=== PATIENT | female | born 1950 | race Two or more races ===

== ENCOUNTER 2022-07-04 20:19 | Inpatient (IN) | payer MEDICAID ==
[~2022-07-04] VITALS: Ht 160 cm; Wt 70.5 kg
[2022-07-04 21:30] LABS: Basophils # (auto) 0.1 10 ^3/uL (0-0.2); Basophils % (auto) 0.9 % (0.0-2.0); Eosinophils # (auto) 0.3 10 ^3/uL (0-0.8); Eosinophils % (auto) 5.8 % (0.0-7.0); Hematocrit 40.2 % (36.0-46.0); Hemoglobin 13.3 g/dL (12.2-16.2); Lymphocytes % (auto) 34.9 % (10.0-50.0); Mean Corpuscular Hemoglobin 29.3 pg (28.0-32.0); Mean Corpuscular Volume 88.7 fL (80.0-100.0); Monocytes # (auto) 0.4 10 ^3/uL (0-1.3); Monocytes % (auto) 7.2 % (0.0-12.0); Neutrophils # (auto) 2.9 10 ^3/uL (1.6-8.6); Neutrophils % (auto) 51.2 % (37.0-80.0); Nucleated Red Blood Cells % 0.2 %; Red Blood Cells 4.53 10^6/uL (4.0-5.20); Red Cell Distribution Width 13.7 % (11.8-14.3); White Blood Cell 5.8 10^3/uL (4.4-10.8)
[2022-07-04 21:35] LABS: INR 0.98 (0.9-1.15); Partial Thromboplastin Time 32.2 sec (24.6-33.4)
[2022-07-04 23:01] LABS: Albumin 3.9 g/dL (3.4-5.0); BUN/Creatinine Ratio 27.4; Calcium 9.5 mg/dL (8.5-10.1); Magnesium 2.1 mg/dL (1.6-2.6); Potassium 3.9 mmol/L (3.5-5.1)
[2022-07-04 23:13] LABS: Bilirubin, Total 0.4 mg/dL (0.2-1.0); Total Protein 7.1 g/dL (6.4-8.2)
[2022-07-05] MEDS ORDERED: amLODIPine BESYLATE 5 MG TAB PO ONE (05:00)
[2022-07-05] MEDS ORDERED: OXYCODONE W/ ACETAMINOPHEN 5/325MG TABLET PO ONE (05:00)
[2022-07-05] MEDS ORDERED: LABE100T4 PO (06:14)
[2022-07-05] MEDS ORDERED: FLUO-126 PO (06:14)
[2022-07-05] MEDS ORDERED: HYDR-3682 PO (06:14)
[2022-07-05] MEDS ORDERED: CLON0.1T PO (06:14)
[2022-07-05] MEDS ORDERED: LOSA-69 PO (06:14)
[2022-07-05] MEDS ORDERED: HYDR25TA4 PO (06:14)
[2022-07-05] MEDS ORDERED: HYDR10TA26 PO (06:14)
[2022-07-05] MEDS ORDERED: NITROGLYCERIN 0.4 MG SL TAB SL PRN (06:15)
[2022-07-05] MEDS ORDERED: SODIUM CHLORIDE 0.9% 1,000 ML IV SCH (06:15)
[2022-07-05] MEDS ORDERED: ZOLPIDEM TARTRATE 5 MG TAB PO PRN (06:15)
[2022-07-05] MEDS ORDERED: MORPHINE SULFATE INJ 2 MG/ml SYRG IV PRN (06:15)
[2022-07-05] MEDS ORDERED: MAALOX PLUS or MAALOX 30 ML PO ONE (06:15)
[2022-07-05] MEDS ORDERED: CLOPIDOGREL BISULFATE 75 MG TAB PO SCH (10:00)
[2022-07-05] MEDS: METOPROLOL TARTRATE 25 MG TAB PO SCH ×2 (10:55→13:21)
[2022-07-05] MEDS: LISINOPRIL 10 MG TAB PO SCH ×2 (10:55→13:22)
[2022-07-05] MEDS: DOCUSATE SOD 100 MG CAP PO SCH (10:57)
[2022-07-05] MEDS: ASPirin 81 mg TAB PO SCH (10:57)
[2022-07-05 17:00] VITALS: BP 210/73
[2022-07-05] MEDS: hydrALAZINE HCL 20 MG/ML VL IV PRN ×2 (17:15→23:08)
[2022-07-05] MEDS ORDERED: SIMV80TA73 PO (17:25)
[2022-07-05] MEDS: ACETAMINOPHEN 325 MG TAB PO PRN (17:29)
[2022-07-05 17:50] VITALS: BP 172/49
[2022-07-05 19:20] VITALS: BP 120/63
[2022-07-05] MEDS ORDERED: FLUoxetine HCL 10 MG CAP PO ONE (21:15)
[2022-07-05] MEDS ORDERED: METOPROLOL TARTRATE 25 MG TAB PO ONE (21:15)
[2022-07-05] MEDS ORDERED: ATORVASTATIN 20 MG TAB PO SCH (22:00)
[2022-07-06 00:15] VITALS: BP 115/43
[2022-07-06 05:00] VITALS: BP 139/55
[2022-07-06] MEDS: ACETAMINOPHEN 325 MG TAB PO PRN (06:05)
[2022-07-06 08:55] VITALS: BP 135/46
[2022-07-06] MEDS: ASPirin 81 mg TAB PO SCH (09:12)
[2022-07-06] MEDS: METOPROLOL TARTRATE 25 MG TAB PO SCH (09:13)
[2022-07-06] MEDS: DOCUSATE SOD 100 MG CAP PO SCH (09:13)
[2022-07-06] MEDS ORDERED: FLUoxetine HCL 10 MG CAP PO SCH (10:00)
[2022-07-06] MEDS ORDERED: NITR0.4S29 SL (11:33)
[2022-07-06] MEDS ORDERED: LORA-655 PO (11:39)
[2022-07-06] MEDS: hydrALAZINE HCL 20 MG/ML VL IV PRN (11:48)
[2022-07-06] MEDS ORDERED: LORazepam 2MG/ML-1ML VIAL IV ONE (12:00)
[2022-07-06 12:22] VITALS: BP 186/68
[2022-07-06 13:15] VITALS: BP 176/66
== END 2022-07-06 17:21 | disposition home or self-care (01) | DRG 199 ==
LOC: EDBD 20:19 → ER 20:19 → TELE 07-05 06:17 → TELE-CENTR 07-05 16:37
PROVIDERS: ADMIT Hospitalist; ATTEND Internal Medicine
DX: I16.9 Hypertensive crisis, unspecified (principal); I24.9 Acute ischemic heart disease, unspecified; E66.9 Obesity, unspecified; E78.5 Hyperlipidemia, unspecified; F41.9 Anxiety disorder, unspecified; I10 Essential (primary) hypertension; Z20.822 Contact with and (suspected) exposure to COVID-19; Z88.8 Allergy status to other drugs, medicaments and biological substances; Z68.27 Body mass index [BMI] 27.0-27.9, adult
CPT/HCPCS: 36415; 80053; 83735; 83880; 84484; 85025; 85610; 85730; 87426; 93005; 96360; G0378

== ENCOUNTER 2022-07-10 18:29 | Inpatient (IN) | payer MEDICAID ==
[~2022-07-10] VITALS: Ht 160 cm; Wt 80.3 kg
[~2022-07-10 18:29] MED LIST: CLON0.1T PO; FLUO-126 PO; HYDR-3682 PO; HYDR10TA26 PO; HYDR25TA4 PO; LABE100T4 PO; LORA-655 PO; LOSA-69 PO; NITR0.4S29 SL; SIMV80TA73 PO
[2022-07-10] MEDS ORDERED: cloNIDine HCL 0.1 MG TAB PO ONE (19:00)
[2022-07-10 19:34] LABS: Basophils # (auto) 0 10 ^3/uL (0-0.2); Basophils % (auto) 0.9 % (0.0-2.0); Eosinophils # (auto) 0.3 10 ^3/uL (0-0.8); Eosinophils % (auto) 5.5 % (0.0-7.0); Hematocrit 38.6 % (36.0-46.0); Hemoglobin 12.9 g/dL (12.2-16.2); Lymphocytes # (auto) 1.8 10 ^3/uL (0.4-5.4); Lymphocytes % (auto) 37.3 % (10.0-50.0); Mean Corpuscular Hemoglobin 29.6 pg (28.0-32.0); Mean Corpuscular Hgb Conc. 33.5 g/dL (32.0-36.0); Mean Corpuscular Volume 88.3 fL (80.0-100.0); Monocytes # (auto) 0.4 10 ^3/uL (0-1.3); Monocytes % (auto) 7.3 % (0.0-12.0); Neutrophils # (auto) 2.4 10 ^3/uL (1.6-8.6); Nucleated Red Blood Cells % 0.1 %; Red Blood Cells 4.38 10^6/uL (4.0-5.20); Red Cell Distribution Width 13.4 % (11.8-14.3); White Blood Cell 4.9 10^3/uL (4.4-10.8)
[2022-07-10 19:51] LABS: Albumin 3.8 g/dL (3.4-5.0); BUN/Creatinine Ratio 28.2; Calcium 9.3 mg/dL (8.5-10.1); Potassium 4.5 mmol/L (3.5-5.1)
[2022-07-10 19:57] LABS: Bilirubin, Total 0.4 mg/dL (0.2-1.0); Total Protein 7.1 g/dL (6.4-8.2)
[2022-07-10] MEDS ORDERED: hydrALAZINE HCL 20 MG/ML VL IV PRN (23:00)
[2022-07-10] MEDS ORDERED: NITROGLYCERIN 0.4 MG SL TAB SL PRN (23:00)
[2022-07-10] MEDS ORDERED: cloNIDine HCL 0.1 MG TAB PO PRN (23:00)
[2022-07-10] MEDS ORDERED: MORPHINE SULFATE INJ 2 MG/ml SYRG IV PRN (23:00)
[2022-07-10 23:35] LABS: Cholesterol 166 mg/dL (< 200); Triglycerides 105 mg/dL (< 150)
[2022-07-10 23:38] LABS: HDL Cholesterol 57 mg/dL (40-59); LDL Cholesterol 76 mg/dL (< 100)
[2022-07-11 00:06] LABS: Urine Bacteria NONE SEEN /hpf (None Seen); Urine Blood Negative /uL (Negative); Urine WBC 5 /hpf (0 - 5)
[2022-07-11] MEDS: hydrALAZINE HCL 10 MG TAB PO SCH ×2 (05:51→14:42)
[2022-07-11 07:02] LABS: Basophils # (auto) 0 10 ^3/uL (0-0.2); Basophils % (auto) 0.6 % (0.0-2.0); Eosinophils # (auto) 0.3 10 ^3/uL (0-0.8); Eosinophils % (auto) 6.2 % (0.0-7.0); Hematocrit 35.8 % (36.0-46.0); Hemoglobin 12.1 g/dL (12.2-16.2); Lymphocytes # (auto) 2.2 10 ^3/uL (0.4-5.4); Lymphocytes % (auto) 47.5 % (10.0-50.0); Mean Corpuscular Hemoglobin 29.7 pg (28.0-32.0); Mean Corpuscular Hgb Conc. 33.8 g/dL (32.0-36.0); Mean Corpuscular Volume 87.8 fL (80.0-100.0); Monocytes # (auto) 0.4 10 ^3/uL (0-1.3); Monocytes % (auto) 9.5 % (0.0-12.0); Neutrophils # (auto) 1.7 10 ^3/uL (1.6-8.6); Neutrophils % (auto) 36.2 % (37.0-80.0); Red Blood Cells 4.08 10^6/uL (4.0-5.20); Red Cell Distribution Width 13.4 % (11.8-14.3); White Blood Cell 4.6 10^3/uL (4.4-10.8)
[2022-07-11 07:26] LABS: Albumin 3.4 g/dL (3.4-5.0); Potassium 4.3 mmol/L (3.5-5.1)
[2022-07-11 07:28] LABS: BUN/Creatinine Ratio 31.7
[2022-07-11 07:31] LABS: Bilirubin, Total 0.6 mg/dL (0.2-1.0); Total Protein 6.4 g/dL (6.4-8.2)
[2022-07-11] MEDS ORDERED: HCTZ 25 MG TAB PO SCH (10:00)
[2022-07-11] MEDS ORDERED: LORazepam 2MG/ML-1ML VIAL IV PRN (10:45)
[2022-07-11] MEDS: ASPirin 81 mg TAB PO SCH (11:01)
[2022-07-11] MEDS: LOSARTAN POTASSIUM 50 MG TAB PO SCH ×2 (11:01→23:22)
[2022-07-11] MEDS: ATORVASTATIN 20 MG TAB PO SCH (11:01)
[2022-07-11] MEDS: LABETALOL HCL 200 MG TAB PO SCH ×2 (11:02→23:28)
[2022-07-11] MEDS ORDERED: hydrALAZINE HCL 20 MG/ML VL IV PRN (16:00)
[2022-07-11] MEDS: HCTZ 25 MG TAB PO SCH (18:06)
[2022-07-11 22:00] VITALS: BP 171/62
[2022-07-11] MEDS: cloNIDine HCL 0.1 MG TAB PO SCH (23:21)
[2022-07-11] MEDS: clonazePAM 0.5 MG TAB PO SCH (23:22)
[2022-07-12 05:00] VITALS: BP 102/40
[2022-07-12] MEDS: cloNIDine HCL 0.1 MG TAB PO SCH (05:58)
[2022-07-12] MEDS: HCTZ 25 MG TAB PO SCH (05:58)
[2022-07-12 07:50] VITALS: BP 109/39
[2022-07-12 08:37] VITALS: BP 109/39
[2022-07-12] MEDS: ASPirin 81 mg TAB PO SCH (10:44)
[2022-07-12] MEDS: clonazePAM 0.5 MG TAB PO SCH (10:45)
[2022-07-12] MEDS: LOSARTAN POTASSIUM 50 MG TAB PO SCH (10:45)
[2022-07-12] MEDS: LABETALOL HCL 200 MG TAB PO SCH (10:45)
[2022-07-12] MEDS: ATORVASTATIN 20 MG TAB PO SCH (10:47)
[2022-07-12 12:30] VITALS: BP 98/43
[2022-07-12] MEDS ORDERED: CLON0.1T PO (13:11)
[2022-07-12] MEDS ORDERED: LABE100T4 PO (13:11)
[2022-07-12] MEDS ORDERED: HYDR25TA4 PO (13:11)
[2022-07-12] MEDS ORDERED: LOSA-69 PO (13:11)
[2022-07-12 13:24] VITALS: BP 109/78
== END 2022-07-12 14:52 | disposition home or self-care (01) | DRG 199 ==
LOC: ER 18:29 → TELE 22:57 → TELE-CENTR 07-11 21:55
PROVIDERS: ADMIT Registered Nurse; ATTEND Hospitalist
DX: I16.0 Hypertensive urgency (principal); E66.9 Obesity, unspecified; Z88.8 Allergy status to other drugs, medicaments and biological substances; E78.5 Hyperlipidemia, unspecified; R20.2 Paresthesia of skin; R51.9 Headache, unspecified; Z20.822 Contact with and (suspected) exposure to COVID-19; F41.9 Anxiety disorder, unspecified; Z82.49 Family history of ischemic heart disease and other diseases of the circulatory system; Z68.31 Body mass index [BMI] 31.0-31.9, adult
CPT/HCPCS: 36415; 70450; 70551; 71045; 80053; 80061; 81001; 82088; 83036; 84244; 84443; 84484; 85025; 87426; 93005; 93306; 93975; G0378

== ENCOUNTER 2022-07-23 05:53 | Emergency (ER) | payer MEDICAID ==
[~2022-07-23] VITALS: Ht 160 cm; Wt 81.0 kg
[~2022-07-23 05:53] MED LIST changes: -HYDR-3682 PO; -HYDR10TA26 PO
[2022-07-23] MEDS ORDERED: hydrALAZINE HCL 20 MG/ML VL IV ONE ×2 (06:45→09:30)
[2022-07-23 07:20] LABS: Basophils # (auto) 0 10 ^3/uL (0-0.2); Basophils % (auto) 0.7 % (0.0-2.0); Eosinophils # (auto) 0.4 10 ^3/uL (0-0.8); Eosinophils % (auto) 5.9 % (0.0-7.0); Hematocrit 37.5 % (36.0-46.0); Hemoglobin 12.8 g/dL (12.2-16.2); Lymphocytes # (auto) 1.6 10 ^3/uL (0.4-5.4); Lymphocytes % (auto) 26.4 % (10.0-50.0); Mean Corpuscular Hgb Conc. 34.2 g/dL (32.0-36.0); Mean Corpuscular Volume 87.8 fL (80.0-100.0); Monocytes # (auto) 0.5 10 ^3/uL (0-1.3); Monocytes % (auto) 7.9 % (0.0-12.0); Neutrophils # (auto) 3.6 10 ^3/uL (1.6-8.6); Neutrophils % (auto) 59.1 % (37.0-80.0); Red Blood Cells 4.27 10^6/uL (4.0-5.20); Red Cell Distribution Width 13.4 % (11.8-14.3)
[2022-07-23 07:33] LABS: Albumin 3.8 g/dL (3.4-5.0); BUN/Creatinine Ratio 28.8; Calcium 9.6 mg/dL (8.5-10.1); Magnesium 2.3 mg/dL (1.6-2.6); Potassium 4.2 mmol/L (3.5-5.1)
[2022-07-23 07:36] LABS: Bilirubin, Total 0.4 mg/dL (0.2-1.0); Total Protein 7.1 g/dL (6.4-8.2)
[2022-07-23] MEDS ORDERED: MAGNESIUM SULFATE 1GM/100ML 100 ML IV ONE (09:00)
[2022-07-23] MEDS ORDERED: LABETALOL HCL 5 MG/ML 4ML SYRINGE IV ONE (09:00)
[2022-07-23] MEDS ORDERED: ACETAMINOPHEN 325 MG TAB PO ONE (09:00)
[2022-07-23] MEDS ORDERED: cloNIDine HCL 0.1 MG TAB PO ONE (09:30)
[2022-07-23] MEDS ORDERED: diphenhdrAMINE HCL 50 MG/1 ML VL IV ONE (10:45)
[2022-07-23] MEDS ORDERED: DexAMETHasone SOD PHOS 10MG/1ML VIAL INJ IV ONE (10:45)
[2022-07-23] MEDS ORDERED: SODIUM CHLORIDE 0.9% 1,000 ML IV ONE (10:45)
[2022-07-23] MEDS ORDERED: HALOPERIDOL LACTATE 5 MG/ML INJ VIAL IV ONE (10:45)
[2022-07-23] MEDS ORDERED: METOCLOPRAMIDE HCL 5MG/ml INJ 2ml VIAL IV ONE (10:45)
[2022-07-23 14:00] VITALS: BP 143/61
== END 2022-07-23 14:02 | disposition home or self-care (01) ==
LOC: ER 05:53
DX: I16.0 Hypertensive urgency (principal); I10 Essential (primary) hypertension; D32.9 Benign neoplasm of meninges, unspecified; E78.5 Hyperlipidemia, unspecified; Z88.6 Allergy status to analgesic agent
CPT/HCPCS: 36415; 70450; 71045; 80053; 83735; 83880; 84484; 85025; 93005; 96361; 96365; 96375; 96376; 99285; J0360; J1100; J1200; J1630; J2765; J3475; J7030

== ENCOUNTER 2022-07-25 11:17 | Inpatient (IN) | payer MEDICAID ==
[~2022-07-25] VITALS: Ht 160 cm; Wt 85.4 kg
[2022-07-25] MEDS ORDERED: cloNIDine HCL 0.1 MG TAB PO ONE (12:15)
[2022-07-25] MEDS ORDERED: ASPirin 81 mg TAB PO ONE (12:15)
[2022-07-25 12:47] LABS: Basophils # (auto) 0 10 ^3/uL (0-0.2); Basophils % (auto) 0.3 % (0.0-2.0); Eosinophils # (auto) 0.1 10 ^3/uL (0-0.8); Eosinophils % (auto) 0.9 % (0.0-7.0); Hematocrit 40.1 % (36.0-46.0); Hemoglobin 13.2 g/dL (12.2-16.2); Lymphocytes # (auto) 1.4 10 ^3/uL (0.4-5.4); Lymphocytes % (auto) 20.4 % (10.0-50.0); Mean Corpuscular Hemoglobin 28.9 pg (28.0-32.0); Mean Corpuscular Volume 87.5 fL (80.0-100.0); Monocytes # (auto) 0.5 10 ^3/uL (0-1.3); Monocytes % (auto) 7.7 % (0.0-12.0); Neutrophils # (auto) 4.7 10 ^3/uL (1.6-8.6); Neutrophils % (auto) 70.7 % (37.0-80.0); Red Blood Cells 4.58 10^6/uL (4.0-5.20); Red Cell Distribution Width 13.5 % (11.8-14.3); White Blood Cell 6.7 10^3/uL (4.4-10.8)
[2022-07-25 13:08] LABS: Albumin 4.1 g/dL (3.4-5.0); Potassium 4.2 mmol/L (3.5-5.1)
[2022-07-25 13:11] LABS: BUN/Creatinine Ratio 26.2; Bilirubin, Total 0.4 mg/dL (0.2-1.0)
[2022-07-25] MEDS ORDERED: hydrALAZINE HCL 20 MG/ML VL IV ONE (16:15)
[2022-07-25] MEDS ORDERED: MORPHINE SULFATE INJ 2 MG/ml SYRG IV PRN ×2 (16:30)
[2022-07-25] MEDS ORDERED: hydrALAZINE HCL 20 MG/ML VL IV PRN (16:30)
[2022-07-25] MEDS ORDERED: MAALOX PLUS or MAALOX 30 ML PO PRN (16:30)
[2022-07-25] MEDS ORDERED: TEMAZEPAM 15 MG CAP PO PRN (16:30)
[2022-07-25] MEDS ORDERED: ONDANSETRON HCL 4 MG/2 ML VIAL IV PRN (16:30)
[2022-07-25] MEDS ORDERED: HYDROcodone-ACET 5/325MG TAB PO PRN (16:30)
[2022-07-25] MEDS ORDERED: LORazepam 0.5 MG TAB PO PRN (16:30)
[2022-07-25] MEDS ORDERED: NITROGLYCERIN 0.4 MG SL TAB SL PRN (16:30)
[2022-07-25] MEDS ORDERED: DEXTROSE (50%) 50ML SYRG IV PRN (16:30)
[2022-07-25] MEDS: ACCU-CHEK COMFORT CURVE STRIP VI SCH ×2 (17:44→22:24)
[2022-07-25] MEDS: InsuLIN REG 1unit/0.01ml Soln (100units/ml) SC SCH ×2 (17:53→22:23)
[2022-07-25] MEDS: ACETAMINOPHEN 325 MG TAB PO PRN (21:38)
[2022-07-25] MEDS: cloNIDine HCL 0.1 MG TAB PO SCH (22:20)
[2022-07-25] MEDS: LABETALOL HCL 200 MG TAB PO SCH (22:21)
[2022-07-26] MEDS: ACETAMINOPHEN 325 MG TAB PO PRN (06:19)
[2022-07-26 06:49] LABS: Basophils # (auto) 0 10 ^3/uL (0-0.2); Basophils % (auto) 0.6 % (0.0-2.0); Eosinophils # (auto) 0.1 10 ^3/uL (0-0.8); Eosinophils % (auto) 2.2 % (0.0-7.0); Hemoglobin 13.2 g/dL (12.2-16.2); Lymphocytes # (auto) 1.7 10 ^3/uL (0.4-5.4); Lymphocytes % (auto) 33.6 % (10.0-50.0); Mean Corpuscular Hemoglobin 30.3 pg (28.0-32.0); Mean Corpuscular Hgb Conc. 34.7 g/dL (32.0-36.0); Mean Corpuscular Volume 87.3 fL (80.0-100.0); Monocytes # (auto) 0.6 10 ^3/uL (0-1.3); Monocytes % (auto) 10.8 % (0.0-12.0); Neutrophils # (auto) 2.7 10 ^3/uL (1.6-8.6); Neutrophils % (auto) 52.8 % (37.0-80.0); Nucleated Red Blood Cells % 0.1 %; Red Blood Cells 4.35 10^6/uL (4.0-5.20); Red Cell Distribution Width 13.3 % (11.8-14.3); White Blood Cell 5.2 10^3/uL (4.4-10.8)
[2022-07-26 06:55] LABS: BUN/Creatinine Ratio 28.8; Potassium 3.9 mmol/L (3.5-5.1)
[2022-07-26] MEDS: InsuLIN REG 1unit/0.01ml Soln (100units/ml) SC SCH ×4 (07:00→22:00)
[2022-07-26] MEDS: ACCU-CHEK COMFORT CURVE STRIP VI SCH ×4 (07:05→22:41)
[2022-07-26] MEDS: cloNIDine HCL 0.1 MG TAB PO SCH ×3 (07:50→23:01)
[2022-07-26] MEDS: LABETALOL HCL 200 MG TAB PO SCH ×3 (07:50→22:00)
[2022-07-26 16:21] LABS: Urine Bacteria NONE SEEN /hpf (None Seen); Urine Blood Negative /uL (Negative); Urine Budding Yeast OCCASIONAL /hpf (None Seen); Urine Mucus FEW (None Seen); Urine Specific Gravity 1.018 (1.001-1.035); Urine WBC 22 /hpf (0 - 5)
[2022-07-26] MEDS: ASPirin 81 mg TAB PO SCH (16:54)
[2022-07-26 18:25] VITALS: BP 117/65
[2022-07-26 20:00] VITALS: BP 155/71
[2022-07-26 22:00] VITALS: BP 155/71
[2022-07-26] MEDS: ATORVASTATIN 20 MG TAB PO SCH (22:41)
[2022-07-27] MEDS: ACETAMINOPHEN 325 MG TAB PO PRN (04:33)
[2022-07-27 05:49] VITALS: BP 177/69
[2022-07-27] MEDS: LABETALOL HCL 200 MG TAB PO SCH ×3 (05:52→23:45)
[2022-07-27] MEDS: cloNIDine HCL 0.1 MG TAB PO SCH ×3 (05:52→23:45)
[2022-07-27] MEDS: ACCU-CHEK COMFORT CURVE STRIP VI SCH ×4 (06:04→23:29)
[2022-07-27] MEDS: InsuLIN REG 1unit/0.01ml Soln (100units/ml) SC SCH ×4 (06:04→23:37)
[2022-07-27 08:00] VITALS: BP 122/60
[2022-07-27] MEDS: ASPirin 81 mg TAB PO SCH (09:48)
[2022-07-27] MEDS: DOCUSATE SOD 100 MG CAP PO PRN (11:28)
[2022-07-27 12:00] VITALS: BP 142/70
[2022-07-27] MEDS ORDERED: CLON0.1T PO (14:22)
[2022-07-27] MEDS ORDERED: LABE100T4 PO (14:22)
[2022-07-27] MEDS ORDERED: LOSA-69 PO (14:22)
[2022-07-27] MEDS ORDERED: HYDR25TA4 PO (14:22)
[2022-07-27 16:00] VITALS: BP 115/62
[2022-07-27 22:00] VITALS: BP 133/55
[2022-07-27] MEDS: ATORVASTATIN 20 MG TAB PO SCH (23:45)
[2022-07-28] MEDS: DOCUSATE SOD 100 MG CAP PO PRN (00:16)
[2022-07-28 05:00] VITALS: BP 121/45
[2022-07-28] MEDS: LABETALOL HCL 200 MG TAB PO SCH ×3 (05:55→20:45)
[2022-07-28] MEDS: cloNIDine HCL 0.1 MG TAB PO SCH ×3 (06:22→20:43)
[2022-07-28] MEDS: ACCU-CHEK COMFORT CURVE STRIP VI SCH ×4 (06:22→20:47)
[2022-07-28] MEDS: InsuLIN REG 1unit/0.01ml Soln (100units/ml) SC SCH ×4 (06:22→20:57)
[2022-07-28 09:00] VITALS: BP 147/54
[2022-07-28] MEDS: ASPirin 81 mg TAB PO SCH (09:27)
[2022-07-28] MEDS ORDERED: MAGNESIUM CITRATE SOLUTION 300 ML BTL PO ONE (09:45)
[2022-07-28] MEDS ORDERED: LACTULOSE 20Gm/30ML SOLN PO ONE ×3 (10:15)
[2022-07-28] MEDS ORDERED: FLEET MINERAL OIL ENEMA 133 ML PR ONE (11:15)
[2022-07-28 13:00] VITALS: BP 143/56
[2022-07-28] MEDS ORDERED: LACTULOSE 20Gm/30ML SOLN PO PRN (13:45)
[2022-07-28 17:00] VITALS: BP 127/53
[2022-07-28] MEDS: ATORVASTATIN 20 MG TAB PO SCH (20:43)
[2022-07-28 21:11] VITALS: BP 153/77
== END 2022-07-28 21:45 | disposition home or self-care (01) | DRG 199 ==
LOC: ER 11:17 → TELE 16:29 → TELE-CENTR 07-26 18:15
PROVIDERS: ADMIT Hospitalist; ATTEND Internal Medicine
DX: I16.0 Hypertensive urgency (principal); I67.83 Posterior reversible encephalopathy syndrome; D32.9 Benign neoplasm of meninges, unspecified; I11.9 Hypertensive heart disease without heart failure; K59.00 Constipation, unspecified; F41.9 Anxiety disorder, unspecified; E66.9 Obesity, unspecified; Z20.822 Contact with and (suspected) exposure to COVID-19; R73.9 Hyperglycemia, unspecified; E78.5 Hyperlipidemia, unspecified; Z79.82 Long term (current) use of aspirin; Z79.899 Other long term (current) drug therapy; Z82.49 Family history of ischemic heart disease and other diseases of the circulatory system; Z68.33 Body mass index [BMI] 33.0-33.9, adult; Z88.8 Allergy status to other drugs, medicaments and biological substances
CPT/HCPCS: 36415; 70450; 70551; 71046; 80048; 80053; 81001; 82962; 84484; 85025; 87426; 93005; 93886; 96374; G0378; J1815

== ENCOUNTER 2022-07-30 00:43 | Inpatient (IN) | payer MEDICAID ==
[~2022-07-30] VITALS: Ht 160 cm; Wt 81.6 kg
[2022-07-30] MEDS ORDERED: amLODIPine BESYLATE 5 MG TAB PO ONE ×2 (01:00→08:00)
[2022-07-30] MEDS ORDERED: hydrALAZINE HCL 20 MG/ML VL IV ONE (01:00)
[2022-07-30 01:26] LABS: Basophils # (auto) 0 10 ^3/uL (0-0.2); Basophils % (auto) 0.3 % (0.0-2.0); Eosinophils # (auto) 0.3 10 ^3/uL (0-0.8); Hematocrit 40.6 % (36.0-46.0); Hemoglobin 13.1 g/dL (12.2-16.2); Lymphocytes # (auto) 1.3 10 ^3/uL (0.4-5.4); Mean Corpuscular Hemoglobin 28.6 pg (28.0-32.0); Mean Corpuscular Hgb Conc. 32.2 g/dL (32.0-36.0); Mean Corpuscular Volume 88.8 fL (80.0-100.0); Monocytes # (auto) 0.3 10 ^3/uL (0-1.3); Monocytes % (auto) 4.8 % (0.0-12.0); Neutrophils # (auto) 4.4 10 ^3/uL (1.6-8.6); Neutrophils % (auto) 69.9 % (37.0-80.0); Red Blood Cells 4.57 10^6/uL (4.0-5.20); Red Cell Distribution Width 13.8 % (11.8-14.3); White Blood Cell 6.2 10^3/uL (4.4-10.8)
[2022-07-30 01:36] LABS: INR 1.03 (0.9-1.15)
[2022-07-30 01:38] LABS: Albumin 3.6 g/dL (3.4-5.0); BUN/Creatinine Ratio 20.2; Calcium 9.2 mg/dL (8.5-10.1); Magnesium 2.2 mg/dL (1.6-2.6); Potassium 4.2 mmol/L (3.5-5.1)
[2022-07-30 01:47] LABS: Bilirubin, Total 0.4 mg/dL (0.2-1.0); Total Protein 6.7 g/dL (6.4-8.2)
[2022-07-30 02:20] LABS: Urine Bacteria NONE SEEN /hpf (None Seen); Urine Blood Negative /uL (Negative); Urine Specific Gravity 1.008 (1.001-1.035); Urine WBC 6 /hpf (0 - 5)
[2022-07-30] MEDS ORDERED: ACETAMINOPHEN 500 MG TAB PO ONE (04:15)
[2022-07-30] MEDS ORDERED: HYDROcodone-ACET 5/325MG TAB PO ONE (08:00)
[2022-07-30] MEDS ORDERED: HYDROcodone-ACET 5/325MG TAB PO PRN (09:30)
[2022-07-30] MEDS ORDERED: MORPHINE SULFATE INJ 2 MG/ml SYRG IV PRN ×2 (09:30)
[2022-07-30] MEDS ORDERED: cloNIDine HCL 0.1 MG TAB PO PRN (09:30)
[2022-07-30] MEDS ORDERED: ACETAMINOPHEN 325 MG TAB PO PRN (09:30)
[2022-07-30] MEDS ORDERED: NITROGLYCERIN 0.4 MG SL TAB SL PRN (09:30)
[2022-07-30] MEDS ORDERED: DEXTROSE (50%) 50ML SYRG IV PRN (09:45)
[2022-07-30] MEDS: ASPirin 81 mg TAB PO SCH (11:20)
[2022-07-30] MEDS: amLODIPine BESYLATE 5 MG TAB PO SCH (11:21)
[2022-07-30] MEDS: ENOXAPARIN SOD 40 MG/0.4 ML SYRINGE SC SCH (11:21)
[2022-07-30] MEDS: InsuLIN REG 1unit/0.01ml Soln (100units/ml) SC SCH ×3 (11:30→22:47)
[2022-07-30] MEDS: ACCU-CHEK COMFORT CURVE STRIP VI SCH ×3 (11:46→22:47)
[2022-07-30 11:58] LABS: Alcohol, Urine < 3.0 mg/dL (0-10); Amphetamine Screen, Urine NEGATIVE (NEGATIVE); Barbiturate Scree,Urine NEGATIVE (NEGATIVE); Benzodiazephine Screen, Urine NEGATIVE (NEGATIVE); Cannabinoid Screen, Urine NEGATIVE (NEGATIVE); Cocaine Screen, Urine NEGATIVE (NEGATIVE); Opiate Scree,Urine NEGATIVE (NEGATIVE); Phencyclidine Screen, Urine NEGATIVE (NEGATIVE)
[2022-07-30] MEDS: ACETAMINOPHEN 325 MG TAB PO PRN (17:52)
[2022-07-30] MEDS: LISINOPRIL 10 MG TAB PO SCH (18:18)
[2022-07-30] MEDS: ATORVASTATIN 20 MG TAB PO SCH (22:09)
[2022-07-31 01:37] VITALS: BP 168/63
[2022-07-31 04:54] VITALS: BP 151/62
[2022-07-31] MEDS: ACCU-CHEK COMFORT CURVE STRIP VI SCH (06:32)
[2022-07-31] MEDS: InsuLIN REG 1unit/0.01ml Soln (100units/ml) SC SCH (06:32)
[2022-07-31 07:17] LABS: Basophils # (auto) 0 10 ^3/uL (0-0.2); Basophils % (auto) 0.7 % (0.0-2.0); Eosinophils # (auto) 0.3 10 ^3/uL (0-0.8); Eosinophils % (auto) 5.2 % (0.0-7.0); Hematocrit 39.8 % (36.0-46.0); Hemoglobin 12.9 g/dL (12.2-16.2); Lymphocytes % (auto) 19.2 % (10.0-50.0); Mean Corpuscular Hemoglobin 28.8 pg (28.0-32.0); Mean Corpuscular Hgb Conc. 32.4 g/dL (32.0-36.0); Mean Corpuscular Volume 88.9 fL (80.0-100.0); Monocytes # (auto) 0.8 10 ^3/uL (0-1.3); Neutrophils # (auto) 3.1 10 ^3/uL (1.6-8.6); Neutrophils % (auto) 59.9 % (37.0-80.0); Nucleated Red Blood Cells % 0.1 %; Red Blood Cells 4.47 10^6/uL (4.0-5.20); Red Cell Distribution Width 13.8 % (11.8-14.3); White Blood Cell 5.2 10^3/uL (4.4-10.8)
[2022-07-31 08:27] VITALS: BP 141/47
[2022-07-31 08:32] LABS: BUN/Creatinine Ratio 27.9; Calcium 9.3 mg/dL (8.5-10.1); Potassium 4.8 mmol/L (3.5-5.1)
[2022-07-31] MEDS: ASPirin 81 mg TAB PO SCH (08:45)
[2022-07-31] MEDS: amLODIPine BESYLATE 5 MG TAB PO SCH (08:46)
[2022-07-31] MEDS: ENOXAPARIN SOD 40 MG/0.4 ML SYRINGE SC SCH (08:46)
[2022-07-31] MEDS: LISINOPRIL 10 MG TAB PO SCH (08:46)
[2022-07-31] MEDS ORDERED: cefTRIAXone 1GM/50ML D5W 50 ML IV ONE (10:45)
[2022-07-31] MEDS ORDERED: MECLIZINE HCL 25 MG TAB PO PRN (10:45)
[2022-07-31] MEDS: ACETAMINOPHEN 325 MG TAB PO PRN (10:45)
[2022-07-31] MEDS ORDERED: LABETALOL HCL 5 MG/ML 4ML SYRINGE IV PRN (10:45)
[2022-07-31] MEDS ORDERED: LACTULOSE 20Gm/30ML SOLN PO ONE (10:45)
[2022-07-31] MEDS ORDERED: TEMAZEPAM 15 MG CAP PO PRN (10:45)
[2022-07-31] MEDS ORDERED: HCTZ 25 MG TAB PO ONE (10:45)
[2022-07-31] MEDS ORDERED: FLUoxetine HCL 10 MG CAP PO ONE (10:45)
[2022-07-31] MEDS ORDERED: DOCUSATE SOD 100 MG CAP PO ONE (10:45)
[2022-07-31] MEDS ORDERED: cloNIDine HCL 0.1 MG TAB PO ONE (10:45)
[2022-07-31 12:39] VITALS: BP 120/39
[2022-07-31] MEDS ORDERED: OMEP20TA PO (15:59)
[2022-07-31 16:10] VITALS: BP 151/60
[2022-07-31] MEDS ORDERED: PANTOPRAZOLE 40 MG TAB PO ONE (16:15)
[2022-07-31 22:00] VITALS: BP 181/65
[2022-07-31] MEDS: cloNIDine HCL 0.1 MG TAB PO SCH (22:28)
[2022-07-31] MEDS: ATORVASTATIN 20 MG TAB PO SCH (22:29)
[2022-08-01 05:00] VITALS: BP 134/56
[2022-08-01 06:22] LABS: Calcium 9.1 mg/dL (8.5-10.1); Potassium 3.8 mmol/L (3.5-5.1)
[2022-08-01] MEDS: cefTRIAXone 1GM/50ML D5W 50 ML IV SCH (08:14)
[2022-08-01] MEDS: FLUoxetine HCL 10 MG CAP PO SCH (08:55)
[2022-08-01] MEDS: PANTOPRAZOLE 40 MG TAB PO SCH (08:56)
[2022-08-01] MEDS: cloNIDine HCL 0.1 MG TAB PO SCH ×2 (08:56→21:11)
[2022-08-01] MEDS: ASPirin 81 mg TAB PO SCH (08:56)
[2022-08-01 09:00] VITALS: BP 161/66
[2022-08-01] MEDS ORDERED: HCTZ 25 MG TAB PO SCH (10:00)
[2022-08-01] MEDS: LOSARTAN POTASSIUM 50 MG TAB PO SCH (10:20)
[2022-08-01] MEDS ORDERED: AZITHROMYCIN 500MG/ 250ML 250 ML IV ONE (11:15)
[2022-08-01] MEDS: amLODIPine BESYLATE 5 MG TAB PO SCH (12:52)
[2022-08-01 13:00] VITALS: BP 113/52
[2022-08-01 16:44] VITALS: BP 103/46
[2022-08-01 20:29] VITALS: BP 129/60
[2022-08-01] MEDS: ACETAMINOPHEN 325 MG TAB PO PRN (21:12)
[2022-08-01] MEDS: ATORVASTATIN 20 MG TAB PO SCH (21:13)
[2022-08-01 22:00] VITALS: BP 153/65
[2022-08-02 05:00] VITALS: BP 118/49
[2022-08-02 05:55] LABS: BUN/Creatinine Ratio 38.8; Calcium 8.7 mg/dL (8.5-10.1); Potassium 3.8 mmol/L (3.5-5.1)
[2022-08-02 05:59] LABS: Hematocrit 37.6 % (36.0-46.0); Hemoglobin 12.2 g/dL (12.2-16.2); Mean Corpuscular Hemoglobin 28.8 pg (28.0-32.0); Mean Corpuscular Hgb Conc. 32.3 g/dL (32.0-36.0); Mean Corpuscular Volume 89.1 fL (80.0-100.0); Red Blood Cells 4.23 10^6/uL (4.0-5.20); Red Cell Distribution Width 13.5 % (11.8-14.3); White Blood Cell 4.6 10^3/uL (4.4-10.8)
[2022-08-02 06:34] LABS: Basophils % (manual) 0 (0.0-2.0); Blast Cells 0; Metamyelocytes % 0; Myelocytes % 0; Promyelocytes % 0; Reactive Lymphocytes 0
[2022-08-02 08:00] VITALS: BP 140/61
[2022-08-02 08:37] LABS: Band Neutrophils % (manual) 2; Eosinophils % (manual) 4 (0-7); Lymphocytes % (manual) 36 (10.0-50.0); Monocytes % (manual) 25 (0-12)
[2022-08-02 09:10] VITALS: BP 140/61
[2022-08-02] MEDS ORDERED: AZITHROMYCIN 500MG/ 250ML 250 ML IV SCH (10:00)
[2022-08-02] MEDS ORDERED: ASCORBIC ACID 500 MG TAB PO SCH (10:00)
[2022-08-02] MEDS ORDERED: ZINC SULFATE 220mg CAP or TAB PO SCH (10:00)
[2022-08-02] MEDS ORDERED: CLON0.1T PO (10:22)
[2022-08-02] MEDS ORDERED: AML5T PO (10:22)
[2022-08-02] MEDS ORDERED: MECL25TA18 PO (10:23)
[2022-08-02] MEDS ORDERED: AZIT500T PO (10:23)
[2022-08-02] MEDS ORDERED: TEMA15CA5 PO (10:23)
[2022-08-02] MEDS: ASPirin 81 mg TAB PO SCH (10:41)
[2022-08-02] MEDS: cefTRIAXone 1GM/50ML D5W 50 ML IV SCH (10:41)
[2022-08-02] MEDS: cloNIDine HCL 0.1 MG TAB PO SCH (10:42)
[2022-08-02] MEDS: LOSARTAN POTASSIUM 50 MG TAB PO SCH (10:43)
[2022-08-02] MEDS: PANTOPRAZOLE 40 MG TAB PO SCH (10:43)
[2022-08-02] MEDS: amLODIPine BESYLATE 5 MG TAB PO SCH (10:43)
[2022-08-02] MEDS: FLUoxetine HCL 10 MG CAP PO SCH (10:43)
[2022-08-02 12:05] VITALS: BP 140/61
[2022-08-02 12:47] VITALS: BP 140/73
== END 2022-08-02 17:59 | disposition home or self-care (01) | DRG 199 ==
LOC: EDBD 00:43 → ER 00:45 → TELE 09:33 → TELE-CENTR 23:42
PROVIDERS: ADMIT Registered Nurse; ATTEND Internal Medicine
DX: I16.0 Hypertensive urgency (principal); J12.82 Pneumonia due to coronavirus disease 2019; U07.1 COVID-19; D32.9 Benign neoplasm of meninges, unspecified; E11.9 Type 2 diabetes mellitus without complications; E66.9 Obesity, unspecified; E78.5 Hyperlipidemia, unspecified; F41.9 Anxiety disorder, unspecified; F32.A Depression, unspecified; N39.0 Urinary tract infection, site not specified; H53.129 Transient visual loss, unspecified eye; I10 Essential (primary) hypertension; H81.10 Benign paroxysmal vertigo, unspecified ear; Z88.8 Allergy status to other drugs, medicaments and biological substances; Z68.32 Body mass index [BMI] 32.0-32.9, adult; Z79.899 Other long term (current) drug therapy; Z82.49 Family history of ischemic heart disease and other diseases of the circulatory system; Z88.6 Allergy status to analgesic agent
CPT/HCPCS: 36415; 70450; 71045; 80048; 80053; 80307; 81001; 82962; 83735; 83880; 84484; 85007; 85025; 85027; 85610; 85730; 87081; 87426; 87804; 93005; G0378; J0696; J3490

== ENCOUNTER 2023-01-06 09:01 | Inpatient (IN) | payer MEDICAID ==
[~2023-01-06] VITALS: Ht 162.6 cm; Wt 83.0 kg
[~2023-01-06 09:01] MED LIST changes: +AML5T PO; +AZIT500T PO; -LOSA-69 PO; +LOSA50TA46 PO; +MECL1TAB32 PO; -NITR0.4S29 SL; +OMEP20TA PO; +SIMV80TA17 PO; -SIMV80TA73 PO; +TEMA15CA5 PO
[2023-01-06 10:08] LABS: Basophils # (auto) 0 10 ^3/uL (0-0.2); Basophils % (auto) 0.5 % (0.0-2.0); Eosinophils # (auto) 0.2 10 ^3/uL (0-0.8); Eosinophils % (auto) 2.7 % (0.0-7.0); Hematocrit 38.1 % (36.0-46.0); Hemoglobin 12.5 g/dL (12.2-16.2); Lymphocytes # (auto) 1.8 10 ^3/uL (0.4-5.4); Lymphocytes % (auto) 21.8 % (10.0-50.0); Mean Corpuscular Hemoglobin 29.2 pg (28.0-32.0); Mean Corpuscular Hgb Conc. 32.9 g/dL (32.0-36.0); Mean Corpuscular Volume 88.7 fL (80.0-100.0); Monocytes # (auto) 0.7 10 ^3/uL (0-1.3); Monocytes % (auto) 7.9 % (0.0-12.0); Neutrophils # (auto) 5.6 10 ^3/uL (1.6-8.6); Neutrophils % (auto) 67.1 % (37.0-80.0); Red Blood Cells 4.29 10^6/uL (4.0-5.20); Red Cell Distribution Width 13.4 % (11.8-14.3); White Blood Cell 8.3 10^3/uL (4.4-10.8)
[2023-01-06 10:23] LABS: Calcium 8.9 mg/dL (8.5-10.1); Potassium 4.7 mmol/L (3.5-5.1)
[2023-01-06 10:31] LABS: Bilirubin, Total 0.4 mg/dL (0.2-1.0); Total Protein 7.4 g/dL (6.4-8.2)
[2023-01-06] MEDS ORDERED: ALBUTEROL SULF 2.5 MG/0.5ML(0.5%) NEB SOLN NEB ONE (11:45)
[2023-01-06] MEDS ORDERED: ENOXAPARIN SOD 80 MG/0.8ML SYRINGE SC ONE (11:45)
[2023-01-06 15:19] LABS: Urine Bacteria NONE SEEN /hpf (None Seen); Urine Blood Negative /uL (Negative); Urine Specific Gravity 1.012 (1.001-1.035); Urine WBC <1 /hpf (0 - 5)
[2023-01-06] MEDS ORDERED: MORPHINE SULFATE INJ 2 MG/ml SYRG IV PRN (15:45)
[2023-01-06] MEDS ORDERED: FUROSEMIDE 40 MG/4 ML VIAL IV ONE (15:45)
[2023-01-06] MEDS ORDERED: ALBUTEROL SULF 2.5 MG/0.5ML(0.5%) NEB SOLN NEB PRN (15:45)
[2023-01-06] MEDS ORDERED: AZITHROMYCIN 500MG/ 250ML 250 ML IV ONE (15:45)
[2023-01-06] MEDS ORDERED: NITROGLYCERIN 0.4 MG SL TAB SL PRN (15:45)
[2023-01-06] MEDS ORDERED: IPRATROPIUM BROM 0.5 MG/2.5ML INH SOL NEB PRN (15:45)
[2023-01-06] MEDS ORDERED: LORazepam 0.5 MG TAB PO PRN (16:00)
[2023-01-06] MEDS ORDERED: DEXTROSE (50%) 50ML SYRG IV PRN (16:00)
[2023-01-06] MEDS: ACCU-CHEK COMFORT CURVE STRIP VI SCH ×2 (17:00→22:17)
[2023-01-06 17:16] LABS: INR 1.06 (0.9-1.15); Partial Thromboplastin Time 36.6 SEC (24.5-34.5)
[2023-01-06] MEDS: InsuLIN REG 1unit/0.01ml Soln (100units/ml) SC SCH ×2 (18:50→22:27)
[2023-01-06] MEDS ORDERED: IOHEXOL 350 MG/ML 100ML IJ ONE (20:35)
[2023-01-06] MEDS: LOSARTAN POTASSIUM 50 MG TAB PO SCH (22:28)
[2023-01-06] MEDS: cloNIDine HCL 0.1 MG TAB PO SCH (22:29)
[2023-01-07 03:13] VITALS: BP 140/47
[2023-01-07] MEDS: ACCU-CHEK COMFORT CURVE STRIP VI SCH ×4 (06:34→22:38)
[2023-01-07] MEDS: InsuLIN REG 1unit/0.01ml Soln (100units/ml) SC SCH ×4 (06:34→22:00)
[2023-01-07 06:42] LABS: Basophils # (auto) 0 10 ^3/uL (0-0.2); Basophils % (auto) 0.7 % (0.0-2.0); Eosinophils # (auto) 0.2 10 ^3/uL (0-0.8); Eosinophils % (auto) 2.9 % (0.0-7.0); Hematocrit 34.5 % (36.0-46.0); Hemoglobin 11.4 g/dL (12.2-16.2); Lymphocytes # (auto) 1.6 10 ^3/uL (0.4-5.4); Lymphocytes % (auto) 31.1 % (10.0-50.0); Monocytes # (auto) 0.6 10 ^3/uL (0-1.3); Monocytes % (auto) 11.8 % (0.0-12.0); Neutrophils # (auto) 2.8 10 ^3/uL (1.6-8.6); Neutrophils % (auto) 53.5 % (37.0-80.0); Red Blood Cells 3.93 10^6/uL (4.0-5.20); Red Cell Distribution Width 13.3 % (11.8-14.3); White Blood Cell 5.2 10^3/uL (4.4-10.8)
[2023-01-07 06:44] LABS: Albumin 3.5 g/dL (3.4-5.0); Calcium 8.8 mg/dL (8.5-10.1); Potassium 3.8 mmol/L (3.5-5.1)
[2023-01-07 06:51] LABS: BUN/Creatinine Ratio 26.3 (10.0-20.0); Bilirubin, Total 0.4 mg/dL (0.2-1.0); Total Protein 6.6 g/dL (6.4-8.2)
[2023-01-07] MEDS ORDERED: OMEPRAZOLE-SOD BICARB 20 MG POWDER PO SCH (10:00)
[2023-01-07] MEDS: ENOXAPARIN SOD 40 MG/0.4 ML SYRINGE SC SCH (10:34)
[2023-01-07] MEDS: FLUoxetine HCL 10 MG CAP PO SCH (10:35)
[2023-01-07] MEDS: FUROSEMIDE 20 MG/2 ML VIAL IV SCH (10:35)
[2023-01-07] MEDS: ASPirin 81 mg TAB PO SCH (10:35)
[2023-01-07] MEDS: ATORVASTATIN 20 MG TAB PO SCH (10:35)
[2023-01-07] MEDS: cloNIDine HCL 0.1 MG TAB PO SCH ×2 (10:36→22:37)
[2023-01-07] MEDS: LOSARTAN POTASSIUM 50 MG TAB PO SCH ×2 (10:36→22:36)
[2023-01-07] MEDS: amLODIPine BESYLATE 5 MG TAB PO SCH (10:37)
[2023-01-07] MEDS: AZITHROMYCIN 500MG/ 250ML 250 ML IV SCH (11:12)
[2023-01-07] MEDS: PANTOPRAZOLE 40 MG TAB PO SCH (12:35)
[2023-01-07 16:00] VITALS: BP 128/52
[2023-01-07] MEDS ORDERED: cefTRIAXone 1GM/50ML D5W 50 ML IV ONE (20:00)
[2023-01-07 21:55] VITALS: BP 145/49
[2023-01-08 04:30] VITALS: BP 139/60
[2023-01-08] MEDS: ACCU-CHEK COMFORT CURVE STRIP VI SCH ×4 (06:14→21:39)
[2023-01-08] MEDS: InsuLIN REG 1unit/0.01ml Soln (100units/ml) SC SCH ×4 (06:17→21:40)
[2023-01-08 07:05] LABS: Basophils # (auto) 0 10 ^3/uL (0-0.2); Eosinophils # (auto) 0.2 10 ^3/uL (0-0.8); Eosinophils % (auto) 5.9 % (0.0-7.0); Hematocrit 35.1 % (36.0-46.0); Hemoglobin 11.6 g/dL (12.2-16.2); Lymphocytes # (auto) 1.5 10 ^3/uL (0.4-5.4); Lymphocytes % (auto) 36.9 % (10.0-50.0); Mean Corpuscular Hemoglobin 29.1 pg (28.0-32.0); Mean Corpuscular Volume 88.1 fL (80.0-100.0); Monocytes # (auto) 0.5 10 ^3/uL (0-1.3); Monocytes % (auto) 13.1 % (0.0-12.0); Neutrophils # (auto) 1.8 10 ^3/uL (1.6-8.6); Neutrophils % (auto) 43.1 % (37.0-80.0); Red Blood Cells 3.98 10^6/uL (4.0-5.20); Red Cell Distribution Width 13.1 % (11.8-14.3); White Blood Cell 4.1 10^3/uL (4.4-10.8)
[2023-01-08 07:10] LABS: BUN/Creatinine Ratio 34.2 (10.0-20.0); Calcium 8.8 mg/dL (8.5-10.1); Potassium 3.9 mmol/L (3.5-5.1)
[2023-01-08 08:00] VITALS: BP 154/59
[2023-01-08] MEDS: AZITHROMYCIN 500MG/ 250ML 250 ML IV SCH (10:53)
[2023-01-08] MEDS: cefTRIAXone 1GM/50ML D5W 50 ML IV SCH (10:53)
[2023-01-08] MEDS: FUROSEMIDE 20 MG/2 ML VIAL IV SCH (10:54)
[2023-01-08] MEDS: ENOXAPARIN SOD 40 MG/0.4 ML SYRINGE SC SCH (10:54)
[2023-01-08] MEDS: FLUoxetine HCL 10 MG CAP PO SCH (10:55)
[2023-01-08] MEDS: ATORVASTATIN 20 MG TAB PO SCH (10:55)
[2023-01-08] MEDS: ASPirin 81 mg TAB PO SCH (10:55)
[2023-01-08] MEDS: PANTOPRAZOLE 40 MG TAB PO SCH (10:56)
[2023-01-08] MEDS: amLODIPine BESYLATE 5 MG TAB PO SCH (10:56)
[2023-01-08] MEDS: LOSARTAN POTASSIUM 50 MG TAB PO SCH ×2 (10:56→21:39)
[2023-01-08] MEDS: cloNIDine HCL 0.1 MG TAB PO SCH ×2 (10:57→21:39)
[2023-01-08 12:00] VITALS: BP 130/64
[2023-01-08 16:00] VITALS: BP 105/58
[2023-01-08 22:00] VITALS: BP 162/48
[2023-01-09 05:00] VITALS: BP 148/64
[2023-01-09] MEDS: ACCU-CHEK COMFORT CURVE STRIP VI SCH ×4 (06:23→21:32)
[2023-01-09] MEDS: InsuLIN REG 1unit/0.01ml Soln (100units/ml) SC SCH ×4 (06:23→21:32)
[2023-01-09 06:32] LABS: Basophils # (auto) 0 10 ^3/uL (0-0.2); Eosinophils # (auto) 0.2 10 ^3/uL (0-0.8); Eosinophils % (auto) 5.1 % (0.0-7.0); Hemoglobin 11.3 g/dL (12.2-16.2); Lymphocytes # (auto) 1.2 10 ^3/uL (0.4-5.4); Lymphocytes % (auto) 30.2 % (10.0-50.0); Mean Corpuscular Hemoglobin 29.1 pg (28.0-32.0); Mean Corpuscular Hgb Conc. 33.4 g/dL (32.0-36.0); Mean Corpuscular Volume 87.1 fL (80.0-100.0); Monocytes # (auto) 0.5 10 ^3/uL (0-1.3); Neutrophils # (auto) 2.1 10 ^3/uL (1.6-8.6); Neutrophils % (auto) 51.7 % (37.0-80.0); Red Cell Distribution Width 13.1 % (11.8-14.3); White Blood Cell 4.1 10^3/uL (4.4-10.8)
[2023-01-09 06:44] LABS: Calcium 8.7 mg/dL (8.5-10.1)
[2023-01-09 06:46] LABS: BUN/Creatinine Ratio 31.8 (10.0-20.0)
[2023-01-09 09:00] VITALS: BP 159/58
[2023-01-09] MEDS: ASPirin 81 mg TAB PO SCH (09:59)
[2023-01-09] MEDS: LOSARTAN POTASSIUM 50 MG TAB PO SCH ×2 (09:59→21:30)
[2023-01-09] MEDS: ATORVASTATIN 20 MG TAB PO SCH (09:59)
[2023-01-09] MEDS: FLUoxetine HCL 10 MG CAP PO SCH (10:00)
[2023-01-09] MEDS: cloNIDine HCL 0.1 MG TAB PO SCH ×2 (10:00→21:31)
[2023-01-09] MEDS: amLODIPine BESYLATE 5 MG TAB PO SCH (10:00)
[2023-01-09] MEDS: ENOXAPARIN SOD 40 MG/0.4 ML SYRINGE SC SCH (10:08)
[2023-01-09] MEDS: FUROSEMIDE 20 MG/2 ML VIAL IV SCH (14:33)
[2023-01-09] MEDS: cefTRIAXone 1GM/50ML D5W 50 ML IV SCH (14:43)
[2023-01-09] MEDS: AZITHROMYCIN 500MG/ 250ML 250 ML IV SCH (14:45)
[2023-01-09 17:00] VITALS: BP 112/42
[2023-01-09 20:00] VITALS: BP 129/59
[2023-01-09 22:00] VITALS: BP 129/59
[2023-01-10 05:00] VITALS: BP_SYST 109; BP_SYST 138; BP_DIAS 51; BP_DIAS 70
[2023-01-10 06:08] LABS: Basophils # (auto) 0 10 ^3/uL (0-0.2); Basophils % (auto) 0.8 % (0.0-2.0); Eosinophils # (auto) 0.3 10 ^3/uL (0-0.8); Eosinophils % (auto) 6.6 % (0.0-7.0); Hematocrit 33.1 % (36.0-46.0); Hemoglobin 11.1 g/dL (12.2-16.2); Lymphocytes # (auto) 1.6 10 ^3/uL (0.4-5.4); Lymphocytes % (auto) 39.7 % (10.0-50.0); Mean Corpuscular Hemoglobin 29.3 pg (28.0-32.0); Mean Corpuscular Hgb Conc. 33.5 g/dL (32.0-36.0); Mean Corpuscular Volume 87.5 fL (80.0-100.0); Monocytes # (auto) 0.5 10 ^3/uL (0-1.3); Monocytes % (auto) 11.5 % (0.0-12.0); Neutrophils # (auto) 1.7 10 ^3/uL (1.6-8.6); Neutrophils % (auto) 41.4 % (37.0-80.0); Red Blood Cells 3.78 10^6/uL (4.0-5.20); Red Cell Distribution Width 13.1 % (11.8-14.3); White Blood Cell 4.1 10^3/uL (4.4-10.8)
[2023-01-10] MEDS: InsuLIN REG 1unit/0.01ml Soln (100units/ml) SC SCH ×2 (06:08→11:30)
[2023-01-10] MEDS: ACCU-CHEK COMFORT CURVE STRIP VI SCH ×2 (06:08→11:30)
[2023-01-10 06:23] LABS: BUN/Creatinine Ratio 29.2 (10.0-20.0); Calcium 8.3 mg/dL (8.5-10.1); Potassium 4.3 mmol/L (3.5-5.1)
[2023-01-10 09:00] VITALS: BP 152/60
[2023-01-10] MEDS: cefTRIAXone 1GM/50ML D5W 50 ML IV SCH (09:28)
[2023-01-10] MEDS: AZITHROMYCIN 500MG/ 250ML 250 ML IV SCH (09:35)
[2023-01-10] MEDS: ASPirin 81 mg TAB PO SCH (09:35)
[2023-01-10] MEDS: FUROSEMIDE 20 MG/2 ML VIAL IV SCH (09:35)
[2023-01-10] MEDS: cloNIDine HCL 0.1 MG TAB PO SCH (09:36)
[2023-01-10] MEDS: FLUoxetine HCL 10 MG CAP PO SCH (09:36)
[2023-01-10] MEDS: ATORVASTATIN 20 MG TAB PO SCH (09:36)
[2023-01-10] MEDS: amLODIPine BESYLATE 5 MG TAB PO SCH (09:36)
[2023-01-10] MEDS: LOSARTAN POTASSIUM 50 MG TAB PO SCH (09:36)
[2023-01-10] MEDS: ENOXAPARIN SOD 40 MG/0.4 ML SYRINGE SC SCH (09:37)
[2023-01-10] MEDS ORDERED: AMOX500T86 PO (12:30)
[2023-01-10 13:00] VITALS: BP 128/52
== END 2023-01-10 16:15 | disposition home or self-care (01) | DRG 190 ==
LOC: EDBD 09:01 → ER 09:01 → TELE 15:40 → TELE-CENTR 01-07 12:34
PROVIDERS: ADMIT Nurse Practitioner Family; ATTEND Internal Medicine Pulmonary Disease
DX: I21.4 Non-ST elevation (NSTEMI) myocardial infarction (principal); J96.01 Acute respiratory failure with hypoxia; J15.6 Pneumonia due to other Gram-negative bacteria; I11.0 Hypertensive heart disease with heart failure; E11.9 Type 2 diabetes mellitus without complications; I50.9 Heart failure, unspecified; F41.9 Anxiety disorder, unspecified; E66.9 Obesity, unspecified; Z20.822 Contact with and (suspected) exposure to COVID-19; I25.10 Atherosclerotic heart disease of native coronary artery without angina pectoris; E78.5 Hyperlipidemia, unspecified; Z88.6 Allergy status to analgesic agent; Z82.49 Family history of ischemic heart disease and other diseases of the circulatory system; Z68.31 Body mass index [BMI] 31.0-31.9, adult; Z88.8 Allergy status to other drugs, medicaments and biological substances
CPT/HCPCS: 36415; 71045; 71275; 78452; 80048; 80053; 81001; 82962; 83880; 84484; 85025; 85379; 85610; 85730; 87426; 93005; 93017; 93306; 94640; 96365; 96372; 96375; 99291; G0378; J0696; J1815

== ENCOUNTER 2023-01-21 07:20 | Day surgery (SDC) | payer MEDICAID ==
[~2023-01-21] VITALS: Ht 160 cm; Wt 81.6 kg
[~2023-01-21 07:20] MED LIST changes: -AML5T PO; +AMLO1TAB22 PO; -AZIT500T PO; +FLUO-125 PO; -FLUO-126 PO; -LABE100T4 PO; -LORA-655 PO; -MECL1TAB32 PO; +METO25CA PO; -TEMA15CA5 PO
[2023-01-21] MEDS ORDERED: LIDOCAINE 2%HCL (LOCAL ANESTH.) INJ 20ML MDV ONE ×2 (07:39→08:51)
[2023-01-21] MEDS ORDERED: IODIXANOL 320MG/ML 100ML BTL IV ONE ×2 (07:39→08:52)
[2023-01-21] MEDS ORDERED: fentaNYL CITRATE 100 MCG/2 ML VL ONE (08:51)
[2023-01-21] MEDS ORDERED: ANGIOMAX 250 MG VIAL IV ONE (08:51)
[2023-01-21] MEDS ORDERED: HEPARIN SODIUM (PORCINE) 5000 UNITS/ML 1ML VIAL ONE (08:51)
[2023-01-21] MEDS ORDERED: VERAPAMIL 2.5MG/ML INJ 2ML VIAL IV ONE (08:51)
[2023-01-21] MEDS ORDERED: MIDAZOLAM HCL 2MG/2ML 2ml VIAL (1mg/ml) ONE (08:51)
[2023-01-21] MEDS ORDERED: SODIUM CHL 0.9% 0 ML ONE (08:52)
[2023-01-21] MEDS ORDERED: HYDR25TA4 PO (10:21)
[2023-01-21] MEDS ORDERED: LOSA50TA46 PO (10:21)
[2023-01-21] MEDS ORDERED: CLON0.1T PO (10:21)
[2023-01-21] MEDS ORDERED: METO25TA36 PO (10:21)
== END 2023-01-21 11:48 | disposition home or self-care (01) ==
LOC: CATH 07:20
PROVIDERS: ATTEND Internal Medicine Cardiovascular Disease
DX: R94.39 Abnormal result of other cardiovascular function study (principal); F41.8 Other specified anxiety disorders; M19.90 Unspecified osteoarthritis, unspecified site; I10 Essential (primary) hypertension; Z88.6 Allergy status to analgesic agent; Z82.49 Family history of ischemic heart disease and other diseases of the circulatory system; Z79.899 Other long term (current) drug therapy
CPT/HCPCS: 93458; C1725; C1894; J1644; J2250; J3010; Q9967; 99152